=== PATIENT | male | born 1990 | race Caucasian/White ===

== ENCOUNTER 2020-10-20 22:57 | Emergency (ER) | payer SELFPAY ==
[2020-10-20 23:00] VITALS: BP 164/62; PULSE 91; RESP 18; TEMP 36.4; O2SAT 99; BMI 26.6
--- NOTE | 2020-10-20 23:05 | W.ED.DENTAL ---
HPI - Dental/Oral General: Chief complaint: Dental/Oral Stated complaint: tooth ache Time Seen by Provider: 10/20/20 22:58 History of Present Illness: HPI Narrative: Patient is a 30-year-old male comes to the ED with dental pain. Symptoms started yesterday. He says the dental pain comes from the top right side of his jaw and bottom right. Teeth numbers 1 and 32. Patient does not have a dentist currently but is calling around to get an appointment. Patient denies any fevers, throat swelling or trouble breathing. Associated symptoms: Denies fever(s) or odynophagia Review of Systems Const: Denies: fever(s), chills or fatigue Eyes: Denies: change in vision or eye discomfort ENMT: Reports: dental pain (Back Right upper and lower molars); Denies: throat pain, odynophagia, nasal discharge or nasal congestion Card: Denies: chest pain, palpitations, edema, swelling of feet/ankles, dyspnea on exertion or orthopnea Resp: Denies: dyspnea, productive cough or non-productive cough GI: Denies: abdominal pain, nausea, vomiting, diarrhea, constipation or hematochezia : Denies: flank pain, difficulty urinating, dysuria or hematuria Musc: Denies: neck pain, back pain or extremity swelling Skin/Breast: Denies: rash or new lesions Neuro: Denies: headache(s), numbness in extremities or weakness in extremities Physical Exam Const: COMMON NORMALS: no acute distress, patient oriented x3 and alert GENERAL APPEARANCE: cooperative and comfortable HENMT: COMMON NORMALS: normocephalic HEAD & SCALP: normocephalic MOUTH: Normal oral and palatal mucosa present TEETH & GINGIVA: Yes caries (Extensive dental caries on teeth #1, 2, 31 and 32. ), Yes gingiva abnormal (Surrounding gingival edema around teeth numbers 1, 2, 31 and 32.) edematous and Yes poor dentition THROAT: posterior oropharynx normal and uvula midline Neck/C-Spine: COMMON NORMALS: supple GENERAL: Yes normal visual inspection Resp: COMMON NORMALS: normal respiratory effort, No retractions, No use of accessory muscles and clear to auscultation bilaterally AUSCULTATION: clear to auscultation bilaterally Cardio: COMMON NORMALS: regular rate, regular rhythm, S1 normal heart sound present, S2 normal heart sound present, No gallops present (Cardio), No clicks present (Cardio), No murmurs present (Cardio) and Peripheral pulses 2+ throughout RATE: regular rate RHYTHM: regular rhythm HEART SOUNDS: S1 normal heart sound present and S2 normal heart sound present PERIPHERAL PULSES: Peripheral pulses 2+ throughout GI: COMMON NORMALS: Normal to inspection, nondistended, normoactive bowel sounds present, Soft to palpation, non-tender and no masses PALPATION: Yes Soft to palpation : COMMON NORMALS: Yes no CVA tenderness BLADDER/KIDNEY EXAM: Yes no CVA tenderness Back/Pelvis: COMMON NORMALS: no CVA tenderness Extremity: COMMON NORMALS: normal to inspection Neuro: COMMON NORMALS: patient oriented x3 and moves all extremities SENSORIUM/ORIENTATION: Yes alert Skin: GENERAL SKIN EXAM: dry skin Course Vital Signs: Vital signs: Vital Signs Temperature 97.6 F 10/20/20 23:00 Pulse Rate 91 10/20/20 23:36 Respiratory Rate 18 10/20/20 23:36 Blood Pressure 164/62 10/20/20 23:36 Pulse Oximetry 99 10/20/20 23:36 MDM - Dental/Oral MDM Narrative: Medical decision making narrative: Patient is a 30-year-old male comes into the ED with dental pain back right upper and lower jaw. Denies any fever, throat swelling or trouble breathing. Physical exam shows extensive dental caries especially on teeth #1, 2, 31 and 32, with some surrounding gingival edema. Patient was given a dose of clindamycin while here in the ED and discharged with a prescription for clindamycin. Diagnosed with dental pain due to dental caries. Return to ED precautions given. Told to contact dentist for further evaluation of dental pain. He was told to take ibuprofen or Tylenol [id number] per bottle instructions to help with pain. Patient understood and agreed with plan. Discharge Plan Discharge Patient Disposition: Home Clinical Impression: Pain due to dental caries Condition: Stable Prescriptions: New clindamycin HCl 150 mg capsule 300 mg PO QID 7 Days Qty: 56 RF: 0 Discharge Orders: Discharge ED (Routine); Ordered 10/20/20 Ordered By: Steven Wolf Discharge Diet: Regular Discharge Activity: Resume usual activity Patient Instructions: Dental Caries (ED) Activity Restrictions/Additional Instructions: Follow-up with medical provider as directed. Call dental office to set up an appointment to get dental pain evaluated. Take medications as prescribed. You can take [id number] ibuprofen 800 mg dose every 8 hours as needed for pain. You can also add in some acetaminophen for pain in between your ibuprofen doses if needed. Acetaminophen dose 500 mg up to 1000mg (Max 3,000mg of acetaminophen daily). return to the ER or your medical provider if condition worsens. Please read and understand discharge instructions. If any questions, please ask. 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
[2020-10-20] MEDS: clindamycin 150 mg Capsule 300 MG PO (23:27)
[2020-10-20 23:36] VITALS: BP 164/62; PULSE 91; RESP 18; O2SAT 99
== END 2020-10-20 23:25 | disposition home or self-care (01) ==
PROVIDERS: Emergency Provider Physician Assistant
DX: K02.9 Dental caries, unspecified (principal)
CPT/HCPCS: 12345; 99281; 99283